=== PATIENT | female | born 1950 | race Caucasian/White ===

== ENCOUNTER 2017-04-11 11:21 | Emergency (ER) | payer MEDICARE, OTHER ==
[2017-04-11] MEDS ORDERED: Sodium Chloride 0.9% 5 ML Syringe FLUSH PRN (11:36)
[2017-04-11] MEDS ORDERED: Ketorolac 30 MG/ML SDV IVPUSH ONE (12:09)
--- NOTE | 2017-04-11 12:15 | EDM.PDOC ---
ED HPI GENERAL MEDICAL PROBLEM - General Chief Complaint: Cardiovascular Problem Stated Complaint: palpitations Time Seen by Provider: 04/11/17 12:07 Source of Information: Reports: Patient History Limitations: Reports: No Limitations - History of Present Illness INITIAL COMMENTS - FREE TEXT/NARRATIVE: PT STATES SHE DEVELOPED INTERMITTENT PALPITATIONS 3 DAYS AGO. BECOMING MORE FREQUENT AND WORSE TODAY. ALSO HAS MILD HEADACHE. STATES SHE HAS HAD LOTS OF STRESS LATELY WITH 2 FAMILY MEMBERS PASSING AWAY OVER LAST FEW WEEKS. DENIES CP , SOB, URI, ABD PAIN, N/V/D, DIZZINESS, EXCESSIVE CAFFEINE OR FEVER. Onset Date: 04/08/17 Duration: Day(s): Location: Reports: Chest Severity: Mild Improves with: Reports: None Worsens with: Reports: None Associated Symptoms: Reports: No Other Symptoms - Related Data Allergies Allergy/AdvReac Type Severity Reaction Status Date / Time adhesive tape Allergy Itching Verified 04/11/17 11:59 cephalexin Allergy Cannot Verified 04/11/17 11:59 Remember flaxseed Allergy Hives Verified 04/11/17 11:59 wheat Allergy Itching Verified 04/11/17 11:59 Home Meds: Home Meds ALPRAZolam [Xanax] 0.25 mg PO TID PRN 06/17/15 [History] Albuterol [Ventolin HFA] 1 - 2 puff INH QID PRN 06/17/15 [History] Cyanocobalamin/FA/Pyridoxine [Folbee] 1 each PO DAILY 06/17/15 [History] Multivitamin with Minerals [Multiple Vitamin] 1 tab PO DAILY 06/17/15 [History] Ondansetron [Zofran ODT] 4 mg PO Q4H PRN 06/17/15 [History] Venlafaxine HCl [Venlafaxine ER] 1 tab PO DAILY 06/17/15 [History] Melatonin 10 mg PO DAILY 09/05/16 [History] Ibuprofen [Motrin] 600 mg PO Q6H PRN 09/20/16 [History] [place]-3/DHA/Epa/Fish Oil [[place]-3 Fish Oil 1,000 MG Sfgl] 1 tab PO DAILY [History] Past Medical History HEENT History: Reports: Impaired Vision Respiratory History: Reports: Asthma Genitourinary History: Reports: Renal Calculus [employer] History: Reports: Musculoskeletal History: Reports: Fracture Other Neuro History: trigeminal neuralgia Psychiatric History: Reports: Anxiety, Depression Endocrine/Metabolic History: Reports: Obesity/BMI 30+ Hematologic History: Reports: Anemia Oncologic (Cancer) History: Reports: Other (See Below) Other Oncologic History: Skin unspecified Dermatologic History: Reports: Melanoma - Past Surgical History GI Surgical History: Reports: Appendectomy, Bariatric Procedure, Cholecystectomy , Colonoscopy, EGD Musculoskeletal Surgical History: Reports: Other (See Below) Dermatological Surgical History: Reports: Skin Biopsy Social & Family History - Family History Family Medical History: Noncontributory - Tobacco Use Smoking Status *Q: Former Smoker Years of Tobacco use: 15 Used Tobacco, but Quit: Yes Month Tobacco Last Used: 34 Second Hand Smoke Exposure: No - Caffeine Use Caffeine Use: Reports: Coffee, Tea - Recreational Drug Use Recreational Drug Use: No ED ROS GENERAL - Review of Systems Review Of Systems: ROS reveals no pertinent complaints other than HPI. Constitutional: Reports: No Symptoms HEENT: Reports: No Symptoms Respiratory: Reports: No Symptoms Cardiovascular: Reports: Palpitations. Denies: Chest Pain, Lightheadedness Endocrine: Reports: No Symptoms GI/Abdominal: Reports: No Symptoms : Reports: No Symptoms Musculoskeletal: Reports: No Symptoms Skin: Reports: No Symptoms Neurological: Reports: No Symptoms Psychiatric: Reports: Anxiety Hematologic/Lymphatic: Reports: No Symptoms Immunologic: Reports: No Symptoms ED EXAM, GENERAL - Physical Exam Exam: See Below Exam Limited By: No Limitations General Appearance: Alert, WD/WN, No Apparent Distress Eye Exam: Bilateral Eye: Normal Inspection Ears: Normal External Exam, Normal Canal Nose: Normal Inspection, Normal Mucosa, No Blood Throat/Mouth: Normal Inspection, Normal Oropharynx, No Airway Compromise Head: Atraumatic, Normocephalic Neck: Normal Inspection, Supple, Non-Tender, Full Range of Motion Respiratory/Chest: No Respiratory Distress, Lungs Clear, Normal Breath Sounds, No Accessory Muscle Use, Chest Non-Tender Cardiovascular: Regular Rate, Rhythm, No Murmur GI/Abdominal: Normal Bowel Sounds, Soft, Non-Tender, No Organomegaly, No Distention, No Abnormal Bruit, No Mass Back Exam: Normal Inspection. No: CVA Tenderness (L), CVA Tenderness (R) Extremities: Normal Inspection, Non-Tender, No Pedal Edema Neurological: Alert, Oriented, CN II-XII Intact, Normal Cognition, No Motor/ Sensory Deficits Psychiatric: Normal Affect, Normal Mood Skin Exam: Warm, Dry, Intact, Normal Color, No Rash Lymphatic: No Adenopathy EKG INTERPRETATION EKG Date: 04/11/17 Time: 11:50 Rhythm: NSR Rate (Beats/Min): 61 [place]: Normal P-Wave: Present QRS: Normal ST-T: Normal QT: Normal Comparison: NA - No Prior EKG Course - Orders/Labs/Meds Orders: Active Orders 24 hr Category Date Time Status EKG Documentation Completion [RC] ASDIRECTED Care 04/11/17 11:36 Active Chest 2V [CR] Stat Exams 04/11/17 12:08 Ordered CBC WITH AUTO DIFF [HEME] Stat Lab 04/11/17 12:08 Ordered COMPREHENSIVE METABOLIC PN,CMP [CHEM] Stat Lab 04/11/17 12:08 Ordered D Dimer [D-DIMER QUANTITATIVE] [COAG] Stat Lab 04/11/17 12:08 Ordered Ketorolac [Toradol] Med 04/11/17 12:09 Once 30 mg IVPUSH ONETIME ONE Sodium Chloride 0.9% [Syrex Flush] Med 04/11/17 11:36 Active 5 ml FLUSH Q8HR PRN Saline Lock Insert [OM.PC] Routine Oth 04/11/17 11:36 Ordered EKG 12 Lead [EK] Stat Ther 04/11/17 11:35 Ordered Medication Orders Ketorolac Tromethamine (Toradol) 30 mg IVPUSH ONETIME ONE Stop: 04/11/17 12:10 Sodium Chloride (Syrex Flush) 5 ml FLUSH Q8HR PRN PRN Reason: Keep Vein Open Meds: Medications Generic Name Dose Route Start Last Admin Trade Name Freq PRN Reason Stop Dose Admin Ketorolac Tromethamine 30 mg 04/11/17 12:09 Toradol IVPUSH 04/11/17 12:10 ONETIME ONE Sodium Chloride 5 ml 04/11/17 11:36 Syrex Flush FLUSH Q8HR PRN Keep Vein Open - Radiology Interpretation Free Text/Narrative:: CXR NEGATIVE FOR ACUTE PROCESS - Re-Assessments/Exams Free Text/Narrative Re-Assessment/Exam: 04/11/17 13:12 PT AFEBRILE, NONTOXIC APPEARING, VSS, ANXIETY AND PALPITATIONS RESOLVED. WILL HAVE HER F/U AT [facility] Departure - Departure Time of Disposition: 13:12 Disposition: Home, Self-Care 01 Condition: Good Clinical Impression: Anxiety, Intermittent palpitations - Discharge Information Instructions: Panic Attacks, [id number], Palpitations, [id number] Additional Instructions: FOLLOW UP AT [facility] IN 2 DAYS. RETURN TO ER SOONER IF SYMPTOMS CONTINUE - My Orders Last 24 Hours: My Active Orders 04/11/17 11:35 EKG 12 Lead [EK] Stat 04/11/17 11:36 EKG Documentation Completion [RC] ASDIRECTED Sodium Chloride 0.9% [Syrex Flush] 5 ml FLUSH Q8HR PRN Saline Lock Insert [OM.PC] Routine 04/11/17 12:08 Chest 2V [CR] Stat CBC WITH AUTO DIFF [HEME] Stat COMPREHENSIVE METABOLIC PN,CMP [CHEM] Stat D Dimer [D-DIMER QUANTITATIVE] [COAG] Stat 04/11/17 12:09 Ketorolac [Toradol] 30 mg IVPUSH ONETIME ONE - Assessment/Plan Last 24 Hours: My Active Orders 04/11/17 11:35 EKG 12 Lead [EK] Stat 04/11/17 11:36 EKG Documentation Completion [RC] ASDIRECTED Sodium Chloride 0.9% [Syrex Flush] 5 ml FLUSH Q8HR PRN Saline Lock Insert [OM.PC] Routine 04/11/17 12:08 Chest 2V [CR] Stat CBC WITH AUTO DIFF [HEME] Stat COMPREHENSIVE METABOLIC PN,CMP [CHEM] Stat D Dimer [D-DIMER QUANTITATIVE] [COAG] Stat 04/11/17 12:09 Ketorolac [Toradol] 30 mg IVPUSH ONETIME ONE Assessment:: anxiety Plan: f/u at [facility]
[2017-04-11 12:30] VITALS: BP 123/56
[2017-04-11 12:55] LABS: CHLORIDE,CL 105 mmol/L (98-115); SODIUM,NA 140 mmol/L (136-145)
== END 2017-04-11 13:25 | disposition home or self-care (01) ==
LOC: KA.ED 11:21
DX: F41.9 Anxiety disorder, unspecified (principal); R00.2 Palpitations; J45.909 Unspecified asthma, uncomplicated; E66.9 Obesity, unspecified; Z86.2 Personal history of diseases of the blood and blood-forming organs and certain disorders involving the immune mechanism; Z87.891 Personal history of nicotine dependence; Z88.8 Allergy status to other drugs, medicaments and biological substances; Z91.018 Allergy to other foods; Z79.899 Other long term (current) drug therapy
CPT/HCPCS: 36415; 71020; 80053; 85025; 85379; 93005; 96374; 99285; J1885; 99284